=== PATIENT | male | born 1970 | race Two or more races ===

== ENCOUNTER 2022-02-07 05:56 | Day surgery (SDC) | payer OTHER ==
[2022-02-05 13:37] VITALS: BMI 27.3
[2022-02-07] MEDS ORDERED: ACETAMINOPHEN INJECTION 100 ML IVPB ONE (06:49)
[2022-02-07] MEDS ORDERED: DEXMEDETOMIDINE HCL 200 MCG/2 ML IVPB ONE ×2 (06:49→06:50)
[2022-02-07] MEDS ORDERED: LIDOCAINE HCL/PF (2%) 40 MG/2 ML VIAL ONE (06:54)
[2022-02-07] MEDS ORDERED: PROPOFOL 20 ML ONE (06:54)
[2022-02-07] MEDS ORDERED: DEXAMETHASONE SOD PHOSPHATE 4 MG/1 ML VIAL ONE (06:54)
[2022-02-07] MEDS ORDERED: SODIUM CHLORIDE 0.9% P/F 10 ML VIAL IJ ONE (07:04)
[2022-02-07] MEDS ORDERED: COCAINE HCL 4% TOPICAL SOLUTION 4 ML BOTTLE TP ONE ×2 (07:28→08:24)
[2022-02-07] MEDS ORDERED: LIDOCAINE 1%/EPI 1:100000 (20 ML MULTI DOSE VIAL) ONE (07:30)
[2022-02-07] MEDS ORDERED: MIDAZOLAM HCL 2 MG/2 ML SINGLE DOSE VIAL ONE (07:43)
[2022-02-07] MEDS ORDERED: ONDANSETRON 4 MG/2 ML VIAL IVPUSH PRN (07:50)
[2022-02-07] MEDS ORDERED: oxyCODONE HCL 5 MG TABLET PO PRN ×2 (07:50)
[2022-02-07] MEDS ORDERED: LACTATED RINGERS SOLUTION 1,000 ML IV SCH (08:00)
[2022-02-07] MEDS ORDERED: ceFAZolin SODIUM 1 GM VIAL ONE (08:01)
[2022-02-07] MEDS ORDERED: ceFAZolin SODIUM 1 GM VIAL IVPB ONE (08:15)
[2022-02-07] MEDS ORDERED: LIDOCAINE 1%/EPI 1:100000 (20 ML MULTI DOSE VIAL) IJ ONE ×2 (08:23)
[2022-02-07] MEDS ORDERED: NEOSTIGMINE METHYLSULFATE 0.5 MG/ML - 10 ML MDV ONE (09:25)
[2022-02-07] MEDS ORDERED: GLYCOPYRROLATE 0.2 MG/1 ML VIAL ONE (09:26)
[2022-02-07] MEDS ORDERED: ONDANSETRON 4 MG/2 ML VIAL ONE (09:58)
[2022-02-07 11:14] VITALS: RESP 20
[2022-02-07 12:19] VITALS: BP 133/73; PULSE 70; TEMP 97.3
== END 2022-02-07 12:45 | disposition home or self-care (01) ==
LOC: JASU-SURG 05:56
PROVIDERS: ATTEND Otolaryngology
PROC: 099R8ZZ Drainage of Left Maxillary Sinus, Via Natural or Artificial Opening Endoscopic (ICD-10-PCS; 2022-02-07)
PROC: 09BK8ZX Excision of Nasal Mucosa and Soft Tissue, Via Natural or Artificial Opening Endoscopic, Diagnostic (ICD-10-PCS; 2022-02-07)
PROC: 09BV8ZZ Excision of Left Ethmoid Sinus, Via Natural or Artificial Opening Endoscopic (ICD-10-PCS; principal; 2022-02-07 08:00)
DX: J33.8 Other polyp of sinus (principal); J34.2 Deviated nasal septum; J32.8 Other chronic sinusitis
CPT/HCPCS: 88304-TC; 88305-TC; 88311-TC; 94760